=== PATIENT | female | born 1985 | race Caucasian/White ===

== ENCOUNTER 2023-07-09 07:58 | Outpatient (CLI) | payer OTHER, SELFPAY | END 2023-07-09 07:59 | disposition home or self-care (01) | LOC: NFLDREF 07-10 14:27 | PROVIDERS: PCP Family Medicine; Referring Provider Family Medicine; Visit Provider Family Medicine | DX: C50.919 Malignant neoplasm of unspecified site of unspecified female breast (principal); Z76.89 Persons encountering health services in other specified circumstances | CPT/HCPCS: 80061 ==